=== PATIENT | female | born 2000 ===

== ENCOUNTER 2023-08-18 18:05 | Emergency (ER) | payer SELFPAY ==
[2023-08-18] MEDS ORDERED: Acetaminophen 500 MG Tab PO ONE (18:53)
[2023-08-18 19:34] LABS: CORONAVIRUS COVID-19 NAA NEGATIVE (NEGATIVE); INFLUENZA A NAA POSITIVE (NEGATIVE); INFLUENZA B NAA NEGATIVE (NEGATIVE); RESPIRATORY SYNCYTIAL VIR NAA NEGATIVE (NEGATIVE)
== END 2023-08-18 20:44 | disposition home or self-care (01) ==
LOC: MW.ED 18:05
DX: O98.513 Other viral diseases complicating pregnancy, third trimester (principal); J02.0 Streptococcal pharyngitis; J10.1 Influenza due to other identified influenza virus with other respiratory manifestations; Z20.822 Contact with and (suspected) exposure to COVID-19; Z3A.27 27 weeks gestation of pregnancy
CPT/HCPCS: 0241U; 87651; 99283; A9270

== ENCOUNTER 2023-11-17 22:29 | Inpatient (IN) | payer SELFPAY ==
[2023-11-18] MEDS: Nalbuphine 10 MG/0.5 ML Syringe IM ONE (08:06)
[2023-11-18] MEDS ORDERED: Sodium Chloride 0.9% 2.5 ML Syringe FLUSH PRN (08:22)
[2023-11-18] MEDS ORDERED: Sodium Chloride 0.9% 20 ML SDV IV PRN (08:22)
[2023-11-18] MEDS ORDERED: Ondansetron 4 MG/2 ML SDV IVPUSH PRN (08:22)
[2023-11-18] MEDS ORDERED: Methylergonovine 0.2 MG/1 ML Amp IM PRN (08:22)
[2023-11-18] MEDS ORDERED: Carboprost Tromethamine 250 MCG/1 mL Vial IM PRN (08:22)
[2023-11-18] MEDS ORDERED: Misoprostol 200 MCG Tab PO PRN (08:22)
[2023-11-18] MEDS ORDERED: Tranexamic Acid IN NACL,ISO-OS 1,000 MG in Premix Bag 1 BAG IV PRN (08:22)
[2023-11-18] MEDS ORDERED: Nalbuphine 10 MG/0.5 ML Syringe IVPUSH PRN (08:22)
[2023-11-18] MEDS ORDERED: Sodium Chloride 0.9% 10 ML Syringe FLUSH PRN (08:22)
[2023-11-18] MEDS ORDERED: Water For Irrigation,Sterile 1,000 ML Container IRR PRN (08:22)
[2023-11-18] MEDS ORDERED: Lidocaine 1% 50 ML MDV INJECT PRN (08:22)
[2023-11-18] MEDS ORDERED: Oxytocin/0.9 % Sodium Chloride 30 UNIT/500 ML BAG IV SCH (08:30)
[2023-11-18 09:04] LABS: HEMATOCRIT 41.2 % (37.0-47.0); HEMOGLOBIN 14.2 g/dL (12.0-16.0); MEAN CORPUSCULAR HEMOGLOBIN 30.1 pg (28.0-32.0); MEAN CORPUSCULAR HGB CONC 34.5 g/dL (32.0-36.0); MEAN CORPUSCULAR VOLUME 87.5 fL (83.0-99.0); MEAN PLATELET VOLUME 12.1 fL (9.4-12.3); PLATELET COUNT,PLT 230 K/uL (150-400); RED BLOOD CELL COUNT 4.71 M/uL (4.10-5.30); WHITE BLOOD CELL COUNT,WBC 12.37 K/uL (3.9-11.3)
[2023-11-18] MEDS ORDERED: Terbutaline 1 MG/ML SDV SUBCUT PRN (11:15)
[2023-11-18] MEDS: Lactated Ringers 1,000 ML IV SCH (11:41)
[2023-11-18] MEDS: Oxytocin/0.9 % Sodium Chloride 30 UNIT/500 ML BAG IV SCH (11:41)
[2023-11-18] MEDS ORDERED: Phenylephrine HCl 0.5 MG/5 ML AMP ONE (14:19)
[2023-11-18] MEDS ORDERED: Bupivacaine 0.5% 10 ML SDV ONE (14:20)
[2023-11-18] MEDS: Ropivacaine HCl/PF 200 ML ONE (14:36)
[2023-11-18] MEDS ORDERED: ePHEDrine 50 MG/ML SDV IVPUSH PRN ×2 (14:40)
[2023-11-18] MEDS ORDERED: Phenylephrine HCl 0.5 MG/5 ML AMP IVPUSH PRN (14:40)
[2023-11-18 23:30] LABS: BASOPHILS ABSOLUTE AUTO 0.02 K/uL (0.00-0.20); BASOPHILS PERCENT AUTO 0.1 % (0.0-1.0); HEMATOCRIT 39.9 % (37.0-47.0); HEMOGLOBIN 13.7 g/dL (12.0-16.0); IMMATURE GRAN ABSOLUTE AUTO 0.07 K/uL (0.00-0.05); IMMATURE GRAN PERCENT AUTO 0.4 % (0.0-0.4); LYMPHOCYTES ABSOLUTE AUTO 1.32 K/uL (1.00-4.80); LYMPHOCYTES PERCENT AUTO 8.1 % (24.0-44.0); MEAN CORPUSCULAR HEMOGLOBIN 30.2 pg (28.0-32.0); MEAN CORPUSCULAR HGB CONC 34.3 g/dL (32.0-36.0); MEAN CORPUSCULAR VOLUME 88.1 fL (83.0-99.0); MEAN PLATELET VOLUME 11.7 fL (9.4-12.3); NEUTROPHILS ABSOLUTE AUTO 13.63 K/uL (1.80-7.70); NEUTROPHILS PERCENT AUTO 83.4 % (41.0-71.0); PLATELET COUNT,PLT 199 K/uL (150-400); RED BLOOD CELL COUNT 4.53 M/uL (4.10-5.30); WHITE BLOOD CELL COUNT,WBC 16.34 K/uL (3.9-11.3)
[2023-11-19] MEDS: Acetaminophen 500 MG Tab PO PRN (01:27)
[2023-11-19] MEDS: Ampicillin 2 GM in Sodium Chloride 0.9% 100 ML IV SCH (01:28)
[2023-11-19] MEDS: Gentamicin 430 MG in Sodium Chloride 0.9% 100 ML IV SCH (02:07)
[2023-11-19] MEDS: Ropivacaine HCl/PF 400 MG in Premix Bag 1 BAG EPIDUR SCH (05:25)
[2023-11-19 08:46] LABS: HEMATOCRIT 39.3 % (37.0-47.0); HEMOGLOBIN 13.7 g/dL (12.0-16.0); MEAN CORPUSCULAR HEMOGLOBIN 30.2 pg (28.0-32.0); MEAN CORPUSCULAR HGB CONC 34.9 g/dL (32.0-36.0); MEAN CORPUSCULAR VOLUME 86.8 fL (83.0-99.0); MEAN PLATELET VOLUME 11.8 fL (9.4-12.3); PLATELET COUNT,PLT 194 K/uL (150-400); RED BLOOD CELL COUNT 4.53 M/uL (4.10-5.30); WHITE BLOOD CELL COUNT,WBC 19.71 K/uL (3.9-11.3)
[2023-11-19] MEDS: Azithromycin 500 MG in Sodium Chloride 0.9% 250 ML IV ONE (08:58)
[2023-11-19] MEDS ORDERED: fentaNYL 100 MCG/2 ML SDV ONE (09:05)
[2023-11-19] MEDS ORDERED: Lidocaine 2% 5 ML SDV ONE ×4 (09:05→10:38)
[2023-11-19] MEDS ORDERED: Oxytocin 10 Units/1 ML SDV ONE (09:05)
[2023-11-19] MEDS ORDERED: Bupivacaine 0.5% 10 ML SDV ONE (09:05)
[2023-11-19] MEDS ORDERED: ceFAZolin 1 GM Vial ONE (09:05)
[2023-11-19] MEDS ORDERED: Ropivacaine 0.5% 5 MG/ML 30 ML SDV ONE (09:05)
[2023-11-19] MEDS ORDERED: Ondansetron 4 MG/2 ML SDV ONE (09:05)
[2023-11-19] MEDS ORDERED: EPINEPHrine 1 MG/1 ML Amp ONE (09:05)
[2023-11-19] MEDS ORDERED: Bupivacaine 0.25% 30 ML SDV ONE (09:05)
[2023-11-19] MEDS ORDERED: Morphine PF 10 MG/10 ML SDV ONE (09:05)
[2023-11-19] MEDS ORDERED: Ketorolac 30 MG/ML SDV ONE (09:05)
[2023-11-19 09:08] LABS: A/G RATIO 0.5 (0.9-1.6); BILIRUBIN TOTAL 0.9 mg/dL (0.2-1.0); CALCIUM 8.5 mg/dL (8.5-10.1); CARBON DIOXIDE,CO2 20.1 mmol/L (21.0-32.0); CREATININE 0.9 mg/dL (0.6-1.0); EST CRCL DRUG DOSING (CG) 83.95 mL/min; POTASSIUM,K 3.4 mmol/L (3.5-5.1)
[2023-11-19] MEDS ORDERED: Propofol 200 MG/20 ML SDV ONE ×2 (10:09→10:43)
[2023-11-19] MEDS ORDERED: Misoprostol 200 MCG Tab RECTAL PRN (11:04)
[2023-11-19] MEDS ORDERED: Lanolin 100% Cream 7 GM Tube TOP PRN (11:04)
[2023-11-19] MEDS ORDERED: oxyCODONE 5 MG Tab PO PRN (11:04)
[2023-11-19] MEDS ORDERED: Ondansetron 4 MG/2 ML SDV IVPUSH PRN ×3 (11:04→11:09)
[2023-11-19] MEDS ORDERED: Bisacodyl 10 MG Supp RECTAL PRN (11:04)
[2023-11-19] MEDS ORDERED: Oxytocin 10 Units/1 ML SDV IM PRN (11:04)
[2023-11-19] MEDS ORDERED: diphenhydrAMINE 50 MG/ML SDV IVPUSH PRN ×2 (11:04→11:09)
[2023-11-19] MEDS ORDERED: Methylergonovine 0.2 MG/1 ML Amp IM PRN (11:04)
[2023-11-19] MEDS ORDERED: ePHEDrine 50 MG/ML SDV IVPUSH PRN (11:09)
[2023-11-19] MEDS ORDERED: Albuterol 0.083% 2.5 MG/3 ML Neb Soln NEB PRN (11:09)
[2023-11-19] MEDS ORDERED: fentaNYL 100 MCG/2 ML SDV IVPUSH PRN (11:09)
[2023-11-19] MEDS ORDERED: HYDROmorphone 1 MG/ML Syringe IVPUSH PRN (11:09)
[2023-11-19] MEDS ORDERED: Morphine 2 MG/ML SYRINGE IVPUSH PRN (11:09)
[2023-11-19] MEDS ORDERED: Naloxone 0.4 MG/ML SDV IVPUSH PRN (11:09)
[2023-11-19] MEDS ORDERED: fentaNYL 50 MCG/ML SDV IVPUSH PRN (11:09)
[2023-11-19] MEDS ORDERED: Metoclopramide 10 MG/2 ML SDV IVPUSH PRN (11:09)
[2023-11-19] MEDS ORDERED: Acetaminophen/oxyCODONE 325-5 MG Tab PO PRN (11:09)
[2023-11-19] MEDS ORDERED: droPERidol 5 MG/2 ML SDV IVPUSH PRN (11:09)
[2023-11-19] MEDS ORDERED: Oxytocin/0.9 % Sodium Chloride 30 UNIT/500 ML BAG IV SCH (11:15)
[2023-11-19] MEDS ORDERED: Lactated Ringers 1,000 ML IV SCH (11:15)
[2023-11-19] MEDS: Acetaminophen 1,000 MG in Premix Bag 1 BAG IV SCH (12:00)
[2023-11-19] MEDS: Ketorolac 30 MG/ML SDV IVPUSH SCH (15:03)
[2023-11-19] MEDS: Docusate Sodium 100 MG Cap PO SCH (21:10)
[2023-11-20] MEDS: Gentamicin 360 MG in Sodium Chloride 0.9% 100 ML IV SCH (02:05)
[2023-11-20 06:22] LABS: HEMATOCRIT 28.7 % (37.0-47.0); HEMOGLOBIN 9.8 g/dL (12.0-16.0)
[2023-11-20] MEDS: Sodium Ferric Gluconate Cmplex 125 MG in Sodium Chloride 0.9% 100 ML IV SCH (11:22)
[2023-11-20] MEDS: Acetaminophen 500 MG Tab PO SCH (12:00)
[2023-11-20] MEDS: Ibuprofen 800 MG Tab PO PRN (20:40)
[2023-11-21] MEDS: oxyCODONE 5 MG Tab PO PRN (03:50)
[2023-11-21] MEDS ORDERED: Ibuprofen 600 MG Tab PO SCH (10:30)
[2023-11-21] MEDS ORDERED: Acetaminophen 325 MG Tab PO SCH (10:45)
[2023-11-21] MEDS: Ketorolac 30 MG/ML SDV IVPUSH ONE (11:16)
[2023-11-21] MEDS: Acetaminophen 1,000 MG in Premix Bag 1 BAG IV SCH (11:34)
[2023-11-21] MEDS: Ibuprofen 600 MG Tab PO SCH (18:19)
[2023-11-21] MEDS: Acetaminophen 500 MG Tab PO SCH (18:20)
== END 2023-11-22 17:01 | disposition home or self-care (01) | DRG 787 ==
LOC: MW.OBCHECK 22:29 → MW.OB 22:38 → MW.OBCHECK 11-18 08:44 → OBSVTOIN 11-19 10:02 → MW.OB 11-19 14:46
PROVIDERS: ADMIT Obstetrics & Gynecology Obstetrics; ATTEND Obstetrics & Gynecology Obstetrics
PROC: 10D00Z1 Extraction of Products of Conception, Low, Open Approach (ICD-10-PCS; principal; 2023-11-19 08:45)
DX: O99.214 Obesity complicating childbirth (principal); O75.2 Pyrexia during labor, not elsewhere classified; O77.0 Labor and delivery complicated by meconium in amniotic fluid; Z3A.40 40 weeks gestation of pregnancy; Z37.0 Single live birth; O99.02 Anemia complicating childbirth
CPT/HCPCS: 01967; 01968; 36415; 51702; 59025; 64488; 80053; 85014; 85018; 85025; 85027; 86592; 86850; 86900; 86901; A9270-GY; J0131; J0171; J0290; J0456; J0665; J0690; J1100; J1580; J1885; J2274; J2300; J2371; J2405; J2590; J2704; J2795; J2916; J3010; J3490; J7050; J7120